=== PATIENT | female | born 1930 | race Caucasian/White ===

== ENCOUNTER 2017-02-02 12:09 | Inpatient (IN) | payer MEDICARE, BC ==
[2017-02-02 12:35] LABS: CHLORIDE,CL 102 mEq/L (98-106); SODIUM,NA 138 mEq/L (136-145)
[2017-02-02] MEDS ORDERED: OXYCODONE HCL PO PRN (13:46)
[2017-02-02] MEDS ORDERED: ACETAMINOPHEN PO PRN (13:46)
--- NOTE | 2017-02-02 13:53 | EDM.PDOC ---
ED HPI GENERAL MEDICAL PROBLEM - General Chief Complaint: General Stated Complaint: WEAK,VERTIGO Time Seen by Provider: 02/02/17 12:20 Source of Information: Reports: Patient, Other (friend) History Limitations: Reports: Other (hx of dementia) - History of Present Illness INITIAL COMMENTS - FREE TEXT/NARRATIVE: Lilly is an 86 yo female who is brought into the ER by [facility] with concerns of confusion, weakness and dizziness. A friend has been concerned of her well being and did a wellness check on her today. States she could tell she was a lot weaker. She admits over the last year Lilly has gradually been declining and unsure if she can continue to take care of herself. Hasn't been eating much either per friend. Besides the weakness, Lilly really denies any other symptoms or concerns. Her son lives in [place] currently but does speak to her on a daily basis. - Related Data Allergies Allergy/AdvReac Type Severity Reaction Status Date / Time Sulfa (Sulfonamide Allergy Cannot Verified 02/02/17 13:06 Antibiotics) Remember Home Meds: Home Meds Aspirin [Halfprin] 81 mg PO DAILY 05/28/14 [History] Fluticasone Propionate [Flonase] 2 spray NASBOTH DAILY 05/28/14 [History] Levothyroxine Sodium [Unithroid] 50 mcg PO DAILY 05/28/14 [History] Lisinopril/Hydrochlorothiazide [Lisinopril-Hctz 10-12.5 mg Tab] 1 tab PO DAILY 05/28/14 [History] Loratadine [Claritin] 10 mg PO DAILY 05/28/14 [History] Terazosin [Hytrin] 2 mg PO DAILY 05/28/14 [History] atorvaSTATin [Lipitor] 10 mg PO DAILY 05/28/14 [History] Denosumab [Prolia] 60 mg SUBCUT Q6M 10/03/16 [History] oxyCODONE HCl/Acetaminophen [Percocet 10-325 mg Tablet] 1 each PO Q6H PRN [History] Past Medical History HEENT History: Reports: Sinusitis Cardiovascular History: Reports: High Cholesterol, Hypertension Musculoskeletal History: Reports: Osteoporosis Psychiatric History: Reports: Dementia Hematologic History: Reports: B12 Deficiency Social & Family History - Tobacco Use Smoking Status *Q: Never Smoker Second Hand Smoke Exposure: No ED ROS GENERAL - Review of Systems Review Of Systems: See Below Constitutional: Reports: Weakness, Decreased Appetite, Weight Loss. Denies: Fever, Chills HEENT: Reports: No Symptoms Respiratory: Reports: No Symptoms. Denies: Shortness of Breath, Wheezing, Cough Cardiovascular: Reports: Lightheadedness. Denies: Chest Pain, Edema, Palpitations, Syncope Endocrine: Reports: No Symptoms GI/Abdominal: Reports: No Symptoms. Denies: Abdominal Pain, Constipation, Diarrhea, Melena, Nausea, Vomiting : Reports: No Symptoms Neurological: Reports: Confusion, Dizziness, Weakness ED EXAM, GENERAL - Physical Exam Exam: See Below Exam Limited By: Other (confused) General Appearance: Alert, No Apparent Distress Eye Exam: Bilateral Eye: EOMI, PERRL Ears: Normal External Exam, Normal Canal, Hearing Grossly Normal, Normal TMs Nose: Normal Inspection, Normal Mucosa, No Blood Throat/Mouth: Normal Inspection, Normal Gums, Normal Oropharynx, Normal Voice, No Airway Compromise Head: Atraumatic, Normocephalic Neck: Normal Inspection, Supple, Non-Tender Respiratory/Chest: No Respiratory Distress, Lungs Clear, Normal Breath Sounds, No Accessory Muscle Use Cardiovascular: Normal Peripheral Pulses, Regular Rate, Rhythm, No Edema GI/Abdominal: Normal Bowel Sounds, Soft, Non-Tender, No Organomegaly, No Distention, No Abnormal Bruit, No Mass Extremities: Normal Inspection, No Pedal Edema, Normal Capillary Refill Neurological: Alert, No Motor/Sensory Deficits, Confused Psychiatric: Normal Affect, Normal Mood Skin Exam: Warm, Dry, Intact, Normal Color, No Rash Course - Vital Signs Last Recorded V/S: Last Vital Signs Temp 97.0 F 02/02/17 16:41 Pulse 74 02/02/17 16:41 Resp 20 02/02/17 16:41 BP 118/68 02/02/17 16:41 Pulse Ox 90 L 02/02/17 16:38 - Orders/Labs/Meds Orders: Active Orders 24 hr Category Date Time Status Patient Status [ADT] Routine ADT 02/02/17 13:58 Active Cardiac Monitoring [RC] 0800,2000 Care 02/02/17 13:39 Active Intake and Output [RC] 0600,1800 Care 02/02/17 13:58 Active Oxygen Therapy [RC] .PRN Care 02/02/17 13:58 Active Pulse Oximetry [RC] .PRN Care 02/02/17 13:58 Active Up With Assistance [RC] ASDIRECTED Care 02/02/17 13:58 Active Vital Signs [RC] 0800,1200,1600,2000,0000,0400 Care 02/02/17 13:58 Active Regular Diet [DIET] Diet 02/02/17 Dinner Active Head wo Cont [CT] Stat Exams 02/02/17 12:10 Taken BASIC METABOLIC PANEL,BMP [CHEM] DAILY Lab 02/03/17 05:11 Ordered BASIC METABOLIC PANEL,BMP [CHEM] DAILY Lab 02/04/17 05:11 Ordered BASIC METABOLIC PANEL,BMP [CHEM] DAILY Lab 02/05/17 05:11 Ordered CBC WITH AUTO DIFF [HEME] DAILY Lab 02/03/17 05:11 Ordered CBC WITH AUTO DIFF [HEME] DAILY Lab 02/04/17 05:11 Ordered CBC WITH AUTO DIFF [HEME] DAILY Lab 02/05/17 05:11 Ordered OCCULT BLOOD SCREEN [OP] Stat Lab 02/02/17 13:58 Uncollected Acetaminophen [Tylenol] Med 02/02/17 13:58 Active 650 mg PO Q4H PRN Docusate Sodium [Colace] Med 02/02/17 13:58 Active 100 mg PO BID PRN Levothyroxine [Synthroid] Med 02/03/17 08:00 Active 50 mcg PO DAILY Sodium Chloride 0.9% [Normal Saline] 1,000 ml Med 02/02/17 13:58 Active IV ASDIRECTED oxyCODONE HCl/Acetaminophen Med 02/02/17 13:46 Active 1 each PO Q6H PRN Resuscitation Status Routine Resus Stat 02/02/17 13:40 Ordered Medication Orders Acetaminophen (Tylenol) 650 mg PO Q4H PRN PRN Reason: Pain (Mild 1-3)/fever Ceftriaxone Sodium (Rocephin) 1 gm IVPUSH Q24H [facility] Last Admin: 02/02/17 16:33 Dose: 1 gm Docusate Sodium (Colace) 100 mg PO BID PRN PRN Reason: Constipation Sodium Chloride (Normal Saline) 1,000 mls @ 50 mls/hr IV ASDIRECTED [facility] Last Admin: 02/02/17 14:20 Dose: 50 mls/hr Levothyroxine Sodium (Synthroid) 50 mcg PO DAILY [facility] Non-Formulary Medication (Oxycodone Hcl/Acetaminophen) 1 each PO Q6H PRN PRN Reason: Pain Pantoprazole Sodium (Protonix Iv) 40 mg IVPUSH Q24H [facility] Last Admin: 02/02/17 16:30 Dose: 40 mg Labs: Laboratory Tests 02/02/17 02/02/17 02/02/17 Range/Units 12:15 12:15 12:15 WBC 5.7 (5.0-10.0) 10^3/uL RBC 2.45 L (4.00-5.50) 10^6/uL Hgb 7.5 L* (12.0-16.0) g/dL Hct 23.3 L (37.0-47.0) % MCV 95.1 H (82.0-94.0) fL MCH 30.6 (27.0-32.0) pg MCHC 32.2 L (33.0-38.0) g/dL RDW Coeff of Ivan 13.2 (11.0-15.0) % Plt Count 221 (150-400) 10^3/uL Neut % (Auto) 73.0 (35-85) % Lymph % (Auto) 19.0 (10-55) % [place] % (Auto) 5.8 (0-16) % Eos % (Auto) 1.9 (0-5) % Baso % (Auto) 0.3 (0-3) % Neut # (Auto) 4.18 (1.80-7.00) 10^3/uL Lymph # (Auto) 1.09 (1.00-4.80) 10^3/uL [place] # (Auto) 0.33 (0.00-0.80) 10^3/uL Eos # (Auto) 0.11 (0.00-0.45) 10^3/uL Baso # (Auto) 0.02 10^3/uL Sodium 138 (136-145) mEq/L Potassium 3.2 L (3.5-5.0) mEq/L Chloride 102 (98-106) mEq/L Carbon Dioxide 22 (21-32) mmol/L BUN 68 H D (7-18) mg/dL Creatinine 1.6 H (0.6-1.0) mg/dL Est Cr Clr Drug Dosing TNP Estimated GFR (MDRD) 30 L (>=60) mL/min Glucose 124 H (75-99) mg/dL Calcium 8.7 (8.4-10.1) mg/dL Total Bilirubin 0.6 (0.0-1.0) mg/dL AST 16 (15-37) U/L ALT 14 (12-78) U/L Alkaline Phosphatase 49 (46-116) U/L Creatine Kinase 132 (21-215) U/L Troponin I < 0.017 (0.00-0.06) ng/mL C-Reactive Protein < 0.2 L (0.2-0.8) mg/dL Total Protein 6.8 (6.4-8.2) g/dL Albumin 3.7 (3.4-5.0) g/dL Blood Type O POSITIVE Gel Antibody Screen Negative Crossmatch See Detail Meds: Medications Generic Name Dose Route Start Last Admin Trade Name Freq PRN Reason Stop Dose Admin Acetaminophen 650 mg 02/02/17 13:58 Tylenol PO Q4H PRN Pain (Mild 1-3)/fever Ceftriaxone Sodium 1 gm 02/02/17 14:00 02/02/17 16:33 Rocephin IVPUSH 1 gm Q24H [facility] Administration Docusate Sodium 100 mg 02/02/17 13:58 Colace PO BID PRN Constipation Sodium Chloride 1,000 mls @ 50 mls/hr 02/02/17 13:58 02/02/17 14:20 Normal Saline IV 50 mls/hr ASDIRECTED [facility] Administration Levothyroxine Sodium 50 mcg 02/03/17 08:00 Synthroid PO DAILY [facility] Non-Formulary Medication 1 each 02/02/17 13:46 Oxycodone Hcl/Acetaminophen PO Q6H PRN Pain Pantoprazole Sodium 40 mg 02/02/17 15:00 02/02/17 16:30 Protonix Iv IVPUSH 40 mg Q24H [facility] Administration Discontinued Medications Generic Name Dose Route Start Last Admin Trade Name Freq PRN Reason Stop Dose Admin Furosemide 40 mg 02/02/17 13:58 02/02/17 16:35 Lasix IVPUSH 02/02/17 13:59 40 mg ONETIME ONE Administration Departure - Departure Time of Disposition: 12:50 Disposition: Admitted As Inpatient 64 Clinical Impression: UTI (urinary tract infection) Qualifiers: Indwelling urinary catheter type: unspecified Encounter type: initial encounter Anemia Qualifiers: Anemia type: unspecified type Qualified Code(s): D64.9 - Anemia, unspecified - Discharge Information - Problem List & Annotations (1) UTI (urinary tract infection) SNOMED Code(s): 52894667 Code(s): N39.0 - URINARY TRACT INFECTION, SITE NOT SPECIFIED Status: Acute Current Visit: Yes Qualifiers: Indwelling urinary catheter type: unspecified Encounter type: initial encounter (2) Anemia SNOMED Code(s): 532927607 Code(s): D64.9 - ANEMIA, UNSPECIFIED Status: Acute Current Visit: Yes Qualifiers: Anemia type: unspecified type Qualified Code(s): D64.9 - Anemia, unspecified - My Orders Last 24 Hours: My Active Orders 02/02/17 12:10 Head wo Cont [CT] Stat 02/02/17 13:39 Cardiac Monitoring [RC] 0800,2000 02/02/17 13:40 Resuscitation Status Routine 02/02/17 13:46 oxyCODONE HCl/Acetaminophen 1 each PO Q6H PRN 02/02/17 13:58 Patient Status [ADT] Routine Intake and Output [RC] 0600,1800 Oxygen Therapy [RC] .PRN Pulse Oximetry [RC] .PRN Up With Assistance [RC] ASDIRECTED Vital Signs [RC] 0800,1200,1600,2000,0000,0400 OCCULT BLOOD SCREEN [OP] Stat Acetaminophen [Tylenol] 650 mg PO Q4H PRN Docusate Sodium [Colace] 100 mg PO BID PRN Sodium Chloride 0.9% [Normal Saline] 1,000 ml IV ASDIRECTED 02/02/17 Dinner Regular Diet [DIET] 02/03/17 05:11 BASIC METABOLIC PANEL,BMP [CHEM] DAILY CBC WITH AUTO DIFF [HEME] DAILY 02/03/17 08:00 Levothyroxine [Synthroid] 50 mcg PO DAILY 02/04/17 05:11 BASIC METABOLIC PANEL,BMP [CHEM] DAILY CBC WITH AUTO DIFF [HEME] DAILY 02/05/17 05:11 BASIC METABOLIC PANEL,BMP [CHEM] DAILY CBC WITH AUTO DIFF [HEME] DAILY - Assessment/Plan Admission H&P: Please use this note as an admission H&P Last 24 Hours: My Active Orders 02/02/17 12:10 Head wo Cont [CT] Stat 02/02/17 13:39 Cardiac Monitoring [RC] 08,199902/02/17 13:40 Resuscitation Status Routine 02/02/17 13:46 oxyCODONE HCl/Acetaminophen 1 each PO Q6H PRN 02/02/17 13:58 Patient Status [ADT] Routine Intake and Output [RC] 0600,1800 Oxygen Therapy [RC] .PRN Pulse Oximetry [RC] .PRN Up With Assistance [RC] ASDIRECTED Vital Signs [RC] 0800,1200,1600,2000,0000,0400 OCCULT BLOOD SCREEN [OP] Stat Acetaminophen [Tylenol] 650 mg PO Q4H PRN Docusate Sodium [Colace] 100 mg PO BID PRN Sodium Chloride 0.9% [Normal Saline] 1,000 ml IV ASDIRECTED 02/02/17 Dinner Regular Diet [DIET] 02/03/17 05:11 BASIC METABOLIC PANEL,BMP [CHEM] DAILY CBC WITH AUTO DIFF [HEME] DAILY 02/03/17 08:00 Levothyroxine [Synthroid] 50 mcg PO DAILY 02/04/17 05:11 BASIC METABOLIC PANEL,BMP [CHEM] DAILY CBC WITH AUTO DIFF [HEME] DAILY 02/05/17 05:11 BASIC METABOLIC PANEL,BMP [CHEM] DAILY CBC WITH AUTO DIFF [HEME] DAILY Plan: Consulted with dr. Whitley in regards to Lilly's condition. Will admit under acute care which he was in agreement. Will type and cross and transfuse 2 units of pRBC's. Encourage social service consult for possible fpc placement with concerns of confusion. Antibiotic therapy started as well d/t UTI. Will keep on Telemetry and closely monitor.
[2017-02-02] MEDS ORDERED: Sodium Chloride 0.9% 1,000 ML IV SCH (13:58)
[2017-02-02] MEDS ORDERED: Docusate Sodium 100 MG Cap PO PRN (13:58)
[2017-02-02] MEDS ORDERED: Furosemide 40 MG/4 ML VIAL IVPUSH ONE (13:58)
[2017-02-02] MEDS ORDERED: Acetaminophen 325 MG Tab PO PRN (13:58)
[2017-02-02] MEDS ORDERED: cefTRIAXone 1 GM Vial IVPUSH SCH (14:00)
[2017-02-02] MEDS: Pantoprazole 40 MG Vial IVPUSH SCH (16:30)
[2017-02-03 07:35] LABS: CHLORIDE,CL 105 mEq/L (98-106); SODIUM,NA 142 mEq/L (136-145)
[2017-02-03] MEDS: Levothyroxine 50 MCG Tab PO SCH (07:50)
[2017-02-03] MEDS ORDERED: Potassium Chloride 40 MEQ in Premix Bag 1 BAG IV ONE (10:57)
[2017-02-03] MEDS ORDERED: Sodium Chloride 0.9% 250 ML IV SCH (12:00)
[2017-02-03] MEDS ORDERED: Sodium Chloride 0.9% 250 ML ONE (12:11)
--- NOTE | 2017-02-03 12:37 | PN ---
DATE: 02/03/2017 S: Ms. Rome is admitted by [facility] for weakness, possible UTI and overall decline. She was confused and dizzy apparently at home and a friend came and brought her to the emergency room. She had evidence of a possible bladder infection. She was showing some signs of weakness, was hypokalemic and ultimately admitted for care. She has been having a more difficult time as she is an 86-year-old living at home alone and does have some memory deficits. At the time of admission, her hemoglobin was 7.5 and she does admit and states now that maybe her stools have been darker. She is macrocytic and has a history of B12 deficiency. Her potassium was 3.2 on admit. HOSPITAL COURSE: The patient was admitted, started on IV fluids and given 2 units of blood. Her hemoglobin came up today to 10.6. Urine culture remains pending, but no obvious growth. We did get a Hemoccult back which was positive. O: GENERAL: This morning, she is pleasant, alert and cooperative. Appears in no distress. HEENT: Grossly benign. NECK: Supple. Veins are flat. LUNGS: Sounds are clear. ABDOMEN: Completely benign and nontender, maybe a little discomfort in the mid epigastric area. EXTREMITIES: No peripheral edema is seen. ASSESSMENT: 1. GASTROINTESTINAL BLEED. 2. HYPOKALEMIA. 3. DEMENTIA. P: We have her hemoglobin up to 10.5. She is on clear liquids. We will plan on an upper endoscopy early next week as long as she remains stable. She is on IV Protonix. We will replace her potassium and magnesium today appropriately and continue to monitor that. Her son is present here from [place]. We had a long discussion about her memory deficits, inability to remain at home on her own. He is aware and feels that patient might be appropriate certainly initially maybe to correction for some rehab and we will reassess in a month. I would like to get a cath study to see where she is at today. For now, she looks clinically stable. We will continue all other cares. MILAGROS/JENN /[id number]
[2017-02-03] MEDS: Pantoprazole 40 MG Vial IVPUSH SCH (15:52)
[2017-02-04] MEDS: Levothyroxine 50 MCG Tab PO SCH (07:59)
--- NOTE | 2017-02-04 13:44 | PCM.PN ---
- General Info Functional Status: Reports: pain controlled - Review of Systems General: Reports: No Symptoms HEENT: Reports: no symptoms Pulmonary: Reports: no symptoms Cardiovascular: Reports: No Symptoms Gastrointestinal: Reports: No symptoms Genitourinary: Reports: no symptoms Musculoskeletal: Reports: no symptoms Skin: Reports: no symptoms Neurological: Reports: Confusion Psychiatric: Reports: no symptoms - Patient Data Vitals - most recent: Last Vital Signs Temp 97.8 F 02/04/17 11:36 Pulse 61 02/04/17 11:36 Resp 16 02/04/17 11:36 BP 118/68 02/04/17 11:36 Pulse Ox 97 02/04/17 11:36 Weight - most recent: 123 lb 9.6 oz I&O - last 24 hours: Intake & Output 02/03/17 02/04/17 02/04/17 22:59 06:59 14:59 Intake Total 1110 200 540 Output Total 200 400 Balance 910 -200 540 Lab Results last 24 hrs: Laboratory Results - last 24 hr 02/04/17 02/04/17 Range/Units 05:11 05:11 WBC 5.0 (5.0-10.0) 10^3/uL RBC 3.44 L (4.00-5.50) 10^6/uL Hgb 10.7 L (12.0-16.0) g/dL Hct 32.4 L (37.0-47.0) % MCV 94.2 H (82.0-94.0) fL MCH 31.1 (27.0-32.0) pg MCHC 33.0 (33.0-38.0) g/dL RDW Coeff of Ivan 14.3 (11.0-15.0) % Plt Count 206 (150-400) 10^3/uL Neut % (Auto) 62.1 (35-85) % Lymph % (Auto) 24.3 (10-55) % [place] % (Auto) 7.6 (0-16) % Eos % (Auto) 5.8 H (0-5) % Baso % (Auto) 0.2 (0-3) % Neut # (Auto) 3.09 (1.80-7.00) 10^3/uL Lymph # (Auto) 1.21 (1.00-4.80) 10^3/uL [place] # (Auto) 0.38 (0.00-0.80) 10^3/uL Eos # (Auto) 0.29 (0.00-0.45) 10^3/uL Baso # (Auto) 0.01 10^3/uL Sodium 142 (136-145) mEq/L Potassium 3.1 L (3.5-5.0) mEq/L Chloride 106 (98-106) mEq/L Carbon Dioxide 27 (21-32) mmol/L BUN 30 H (7-18) mg/dL Creatinine 1.0 (0.6-1.0) mg/dL Est Cr Clr Drug Dosing 27.93 mL/min Estimated GFR (MDRD) 52 L (>=60) mL/min Glucose 104 H (75-99) mg/dL Calcium 8.3 L (8.4-10.1) mg/dL Aakash Results last 24 hrs: Microbiology 02/02/17 14:20 Urine Culture - Final Urine, Voided Med Orders - Current: Current Medications Acetaminophen (Tylenol) 650 mg PO Q4H PRN PRN Reason: Pain (Mild 1-3)/fever Docusate Sodium (Colace) 100 mg PO BID PRN PRN Reason: Constipation Sodium Chloride (Normal Saline) 250 mls @ 62.5 mls/hr IV ASDIRECTED [facility] Last Admin: 02/03/17 12:20 Dose: 62.5 mls/hr Levothyroxine Sodium (Synthroid) 50 mcg PO DAILY [facility] Last Admin: 02/04/17 07:59 Dose: 50 mcg Non-Formulary Medication (Oxycodone Hcl/Acetaminophen) 1 each PO Q6H PRN PRN Reason: Pain Pantoprazole Sodium (Protonix Iv) 40 mg IVPUSH Q24H [facility] Last Admin: 02/03/17 15:52 Dose: 40 mg Discontinued Medications Ceftriaxone Sodium (Rocephin) 1 gm IVPUSH Q24H [facility] Last Admin: 02/02/17 16:33 Dose: 1 gm Furosemide (Lasix) 40 mg IVPUSH ONETIME ONE Stop: 02/02/17 13:59 Last Admin: 02/02/17 16:35 Dose: 40 mg Sodium Chloride (Normal Saline) 1,000 mls @ 50 mls/hr IV ASDIRECTED [facility] Last Admin: 02/02/17 14:20 Dose: 50 mls/hr Potassium Chloride 40 meq/ (Premix) 100 mls @ 25 mls/hr IV ONETIME ONE Stop: 02/03/17 14:56 Last Admin: 02/03/17 12:17 Dose: 25 mls/hr Sodium Chloride (Normal Saline) Confirm Administered Dose 250 mls @ as directed .ROUTE .STK-MED ONE Stop: 02/03/17 12:12 Last Admin: 02/03/17 12:21 Dose: Not Given - Exam General: alert, cooperative, no acute distress. No: oriented Neck: supple Lungs: Clear to auscultation, Normal respiratory effort Cardiovascular: Regular Rate, Regular Rhythm Abdomen: bowel sounds present, soft, no tenderness, no distension Back Exam: Normal Inspection, Full Range of Motion Extremities: no edema, normal pulses, no tenderness/swelling, no clubbing, no cyanosis, no calf tenderness Peripheral Pulses: 2+: Radial (L), Radial (R), Posterior Tibial (L), Posterior Tibial (R), Dorsalis Pedis (L), Dorsalis Pedis (R) Skin: warm, dry, intact Neurological: no new focal deficit Psy/Mental Status: alert, normal affect, normal mood - Problem List Review Problem List Initiated/Reviewed/Updated: Yes - Plan Plan:: This patient is an 86 year old female that was admitted for confusion. Patient today remains confused. She is alert. She is oriented to self, but not place or time. The patient is being treated for hypokalemia, elevated BUN, and low Hgb. The patient is much improved with labs. Today her Hgb is 10.7, yesterday 10.6, on the 8th it was 7.5. Her potassium sanjay is 31. Her BUn today is 30, yesterday 52, on the 8th was 68. The patient does not appear to be in any acute distress. The patient denies hudson, dizziness, n, v, d, f, cough, congestion, drainage, cp, soa, urinary/bowel changes.
[2017-02-04] MEDS: Pantoprazole 40 MG Vial IVPUSH SCH (15:21)
[2017-02-05] MEDS: Levothyroxine 50 MCG Tab PO SCH ×2 (07:37→12:12)
--- NOTE | 2017-02-05 10:44 | PCM.PN ---
- General Info Date of Service: 02/05/17 Functional Status: Reports: pain controlled - Review of Systems General: Reports: No Symptoms HEENT: Reports: no symptoms Pulmonary: Reports: no symptoms Cardiovascular: Reports: No Symptoms Gastrointestinal: Reports: No symptoms Genitourinary: Reports: no symptoms Musculoskeletal: Reports: no symptoms Skin: Reports: no symptoms Neurological: Reports: Confusion Psychiatric: Reports: no symptoms - Patient Data Vitals - most recent: Last Vital Signs Temp 98.0 F 02/05/17 07:19 Pulse 72 02/05/17 07:19 Resp 17 02/05/17 07:19 BP 112/70 02/05/17 07:19 Pulse Ox 91 L 02/05/17 07:19 Weight - most recent: 123 lb 9.6 oz I&O - last 24 hours: Intake & Output 02/04/17 02/05/17 02/05/17 22:59 06:59 14:59 Intake Total 780 400 Output Total 700 325 Balance 80 -325 400 Lab Results last 24 hrs: Laboratory Results - last 24 hr 02/05/17 02/05/17 02/05/17 Range/Units 05:11 05:11 09:00 WBC 8.2 (5.0-10.0) 10^3/uL RBC 3.32 L (4.00-5.50) 10^6/uL Hgb 10.3 L (12.0-16.0) g/dL Hct 31.5 L (37.0-47.0) % MCV 94.9 H (82.0-94.0) fL MCH 31.0 (27.0-32.0) pg MCHC 32.7 L (33.0-38.0) g/dL RDW Coeff of Ivan 14.1 (11.0-15.0) % Plt Count 200 (150-400) 10^3/uL Neut % (Auto) 71.9 (35-85) % Lymph % (Auto) 15.7 (10-55) % [place] % (Auto) 7.1 (0-16) % Eos % (Auto) 5.1 H (0-5) % Baso % (Auto) 0.2 (0-3) % Neut # (Auto) 5.89 (1.80-7.00) 10^3/uL Lymph # (Auto) 1.29 (1.00-4.80) 10^3/uL [place] # (Auto) 0.58 (0.00-0.80) 10^3/uL Eos # (Auto) 0.42 (0.00-0.45) 10^3/uL Baso # (Auto) 0.02 10^3/uL Sodium 141 (136-145) mEq/L Potassium 3.1 L (3.5-5.0) mEq/L Chloride 106 (98-106) mEq/L Carbon Dioxide 25 (21-32) mmol/L BUN 22 H (7-18) mg/dL Creatinine 1.0 (0.6-1.0) mg/dL Est Cr Clr Drug Dosing 27.93 mL/min Estimated GFR (MDRD) 52 L (>=60) mL/min Glucose 97 (75-99) mg/dL Calcium 8.0 L (8.4-10.1) mg/dL Urine Color Yellow (YELLOW) Urine Appearance Clear (CLEAR) Urine pH 6.5 (4.5-8.0) Ur Specific Gage 1.012 (1.003-1.020) Urine Protein Negative (NEGATIVE) mg/dL Urine Glucose (UA) Negative (NEGATIVE) mg/dL Urine Ketones Negative (NEGATIVE) mg/dL Urine Occult Blood Negative (NEGATIVE) Urine Nitrite Negative (NEGATIVE) Urine Bilirubin Negative (NEGATIVE) Urine Urobilinogen 0.2 (0.2-1.0) EU/dL Ur Leukocyte Esterase Trace H (NEGATIVE) Urine RBC Not seen (0-5) /HPF Urine WBC 0-5 (0-5) /HPF Aakash Results last 24 hrs: Microbiology 02/02/17 14:20 Urine Culture - Final Urine, Voided Med Orders - Current: Current Medications Acetaminophen (Tylenol) 650 mg PO Q4H PRN PRN Reason: Pain (Mild 1-3)/fever Docusate Sodium (Colace) 100 mg PO BID PRN PRN Reason: Constipation Levothyroxine Sodium (Synthroid) 75 mcg PO DAILY [facility] Non-Formulary Medication (Oxycodone Hcl/Acetaminophen) 1 each PO Q6H PRN PRN Reason: Pain Pantoprazole Sodium (Protonix Iv) 40 mg IVPUSH Q24H [facility] Last Admin: 02/04/17 15:21 Dose: 40 mg Potassium Chloride (Klor-Con 10) 40 meq PO DAILY [facility] Discontinued Medications Ceftriaxone Sodium (Rocephin) 1 gm IVPUSH Q24H [facility] Last Admin: 02/02/17 16:33 Dose: 1 gm Furosemide (Lasix) 40 mg IVPUSH ONETIME ONE Stop: 02/02/17 13:59 Last Admin: 02/02/17 16:35 Dose: 40 mg Sodium Chloride (Normal Saline) 1,000 mls @ 50 mls/hr IV ASDIRECTED [facility] Last Admin: 02/02/17 14:20 Dose: 50 mls/hr Potassium Chloride 40 meq/ (Premix) 100 mls @ 25 mls/hr IV ONETIME ONE Stop: 02/03/17 14:56 Last Admin: 02/03/17 12:17 Dose: 25 mls/hr Sodium Chloride (Normal Saline) Confirm Administered Dose 250 mls @ as directed .ROUTE .[facility]-MED ONE Stop: 02/03/17 12:12 Last Admin: 02/03/17 12:21 Dose: Not Given Sodium Chloride (Normal Saline) 250 mls @ 62.5 mls/hr IV ASDIRECTED [facility] Last Admin: 02/03/17 12:20 Dose: 62.5 mls/hr Levothyroxine Sodium (Synthroid) 50 mcg PO DAILY [facility] Last Admin: 02/05/17 07:37 Dose: 50 mcg - Exam General: alert, cooperative, no acute distress Lungs: Clear to auscultation, Normal respiratory effort Cardiovascular: Regular Rate, Regular Rhythm Abdomen: soft, no tenderness, no distension Back Exam: Normal Inspection, Full Range of Motion Extremities: no edema, normal pulses, no tenderness/swelling, no clubbing, no cyanosis, no calf tenderness Peripheral Pulses: 2+: Radial (L), Radial (R), Posterior Tibial (L), Posterior Tibial (R) Skin: warm, dry, intact Neurological: no new focal deficit, normal speech, strength equal bilateral, sensation intact Psy/Mental Status: alert, normal affect, normal mood - Problem List Review Problem List Initiated/Reviewed/Updated: Yes - My Orders Last 24 Hours: My Active Orders 02/05/17 10:33 Levothyroxine [Synthroid] 75 mcg PO DAILY 02/06/17 08:00 Potassium Chloride [Klor-Con 10] 40 meq PO DAILY - Plan Plan:: This patient is an 86 year old female that was admitted for confusion. Patient today remains confused. She is alert. She is oriented to self, but not place or time. Although she does read the dry [employer] board in front of her, but reads it as 2006. The patient is being treated for hypokalemia, elevated BUN, and low Hgb with confusion. She lives at home alone. I do not feel she is able to live at home alone safely. The patient is much improved with labs. Today her Hgb is 10.3, on the 8th it was 7.5. Her potassium today is 3.1. Her BUn today is 22, yesterday 30, on the 8th was 68. The patient does not appear to be in any acute distress. Her TSH is 11.97, I will change her Synthroid. The patient denies hudson, dizziness, n, v, d, f, cough, congestion, drainage, cp, soa, urinary/bowel changes.
[2017-02-05] MEDS: Potassium Chloride 10 MEQ Tab.ER PO SCH (12:19)
[2017-02-05] MEDS: Pantoprazole 40 MG Vial IVPUSH SCH (15:18)
[2017-02-06] MEDS ORDERED: Potassium Chloride 10 MEQ Tab.ER PO SCH (08:00)
[2017-02-06] MEDS ORDERED: Tuberculin, PPD 5 Units/0.1 ML 1 ML MDV IDERM ONE (10:52)
[2017-02-06] MEDS ORDERED: Lactated Ringers 1,000 ML IV SCH (11:00)
[2017-02-06] MEDS ORDERED: Midazolam 1 MG/ML 2 ML SDV ONE (11:50)
[2017-02-06] MEDS ORDERED: fentaNYL 100 MCG/2 ML SDV ONE (11:50)
[2017-02-06] MEDS ORDERED: Lidocaine 4% Top Soln 5 ML LTA Syringe ONE (12:04)
[2017-02-06] MEDS ORDERED: Midazolam 1 MG/ML 2 ML SDV IV ONE (12:20)
[2017-02-06] MEDS: Levothyroxine 50 MCG Tab PO SCH (14:13)
[2017-02-06] MEDS: Potassium Chloride 10 MEQ Tab.ER PO SCH (14:13)
[2017-02-06] MEDS: Pantoprazole 40 MG Vial IVPUSH SCH (14:48)
--- NOTE | 2017-02-06 20:45 | PCM.PN ---
- General Info Date of Service: 02/06/17 Admission Dx/Problem (Free Text): Altered Mental Status Anemia Hypokalemia Functional Status: Reports: pain controlled - Review of Systems General: Reports: Weakness, Fatigue, Other (Patient overall, offers no complaints. Denies all other concerns) HEENT: Reports: no symptoms Pulmonary: Denies: shortness of breath, cough Cardiovascular: Denies: Chest Pain Gastrointestinal: Denies: Abdominal pain, Diarrhea, Nausea, Vomiting Genitourinary: Reports: no symptoms Musculoskeletal: Reports: no symptoms Skin: Reports: no symptoms Neurological: Reports: Confusion, Weakness - Patient Data Vitals - most recent: Last Vital Signs Temp 95.1 F L 02/06/17 19:45 Pulse 75 02/06/17 19:45 Resp 20 02/06/17 19:45 BP 132/78 02/06/17 19:45 Pulse Ox 96 02/06/17 19:45 Weight - most recent: 123 lb 9.6 oz Med Orders - Current: Current Medications Acetaminophen (Tylenol) 650 mg PO Q4H PRN PRN Reason: Pain (Mild 1-3)/fever Docusate Sodium (Colace) 100 mg PO BID PRN PRN Reason: Constipation Last Admin: 02/05/17 19:47 Dose: 100 mg Lactated Ringer's (Ringers, Lactated) 1,000 mls @ 125 mls/hr IV ASDIRECTED COUNTS INCLUDE 234 BEDS AT THE [facility] Levothyroxine Sodium (Synthroid) 75 mcg PO DAILY COUNTS INCLUDE 234 BEDS AT THE [facility] Last Admin: 02/06/17 14:13 Dose: 75 mcg Non-Formulary Medication (Oxycodone Hcl/Acetaminophen) 1 each PO Q6H PRN PRN Reason: Pain Pantoprazole Sodium (Protonix Iv) 40 mg IVPUSH Q24H COUNTS INCLUDE 234 BEDS AT THE [facility] Last Admin: 02/06/17 14:48 Dose: 40 mg Potassium Chloride (Klor-Con 10) 40 meq PO DAILY COUNTS INCLUDE 234 BEDS AT THE [facility] Last Admin: 02/06/17 14:13 Dose: 40 meq Discontinued Medications Ceftriaxone Sodium (Rocephin) 1 gm IVPUSH Q24H COUNTS INCLUDE 234 BEDS AT THE [facility] Last Admin: 02/02/17 16:33 Dose: 1 gm Fentanyl (Sublimaze) Confirm Administered Dose 100 mcg .ROUTE .STK-MED ONE Stop: 02/06/17 11:51 Last Admin: 02/06/17 13:14 Dose: Not Given Furosemide (Lasix) 40 mg IVPUSH ONETIME ONE Stop: 02/02/17 13:59 Last Admin: 02/02/17 16:35 Dose: 40 mg Sodium Chloride (Normal Saline) 1,000 mls @ 50 mls/hr IV ASDIRECTED COUNTS INCLUDE 234 BEDS AT THE [facility] Last Admin: 02/02/17 14:20 Dose: 50 mls/hr Potassium Chloride 40 meq/ (Premix) 100 mls @ 25 mls/hr IV ONETIME ONE Stop: 02/03/17 14:56 Last Admin: 02/03/17 12:17 Dose: 25 mls/hr Sodium Chloride (Normal Saline) Confirm Administered Dose 250 mls @ as directed .ROUTE .STK-MED ONE Stop: 02/03/17 12:12 Last Admin: 02/03/17 12:21 Dose: Not Given Sodium Chloride (Normal Saline) 250 mls @ 62.5 mls/hr IV ASDIRECTED COUNTS INCLUDE 234 BEDS AT THE [facility] Last Admin: 02/03/17 12:20 Dose: 62.5 mls/hr Levothyroxine Sodium (Synthroid) 50 mcg PO DAILY COUNTS INCLUDE 234 BEDS AT THE [facility] Last Admin: 02/05/17 12:12 Dose: 25 mcg Lidocaine HCl (Xylocaine 4% Top Soln) Confirm Administered Dose 5 ml .ROUTE .STK -MED ONE Stop: 02/06/17 12:05 Last Admin: 02/06/17 13:15 Dose: Not Given Midazolam HCl (Versed 1 Mg/Ml) Confirm Administered Dose 2 mg .ROUTE .STK-MED ONE Stop: 02/06/17 11:51 Last Admin: 02/06/17 13:15 Dose: Not Given Midazolam HCl (Versed 1 Mg/Ml) 1 mg IV .STK-MED ONE Stop: 02/06/17 12:21 Last Admin: 02/06/17 12:20 Dose: 1 mg Potassium Chloride (Klor-Con 10) 40 meq PO DAILY COUNTS INCLUDE 234 BEDS AT THE [facility] Tuberculin PPD (Aplisol) 5 unit IDERM ONETIME ONE Stop: 02/06/17 10:53 Last Admin: 02/06/17 14:12 Dose: 5 unit - Exam Quality Assessment: No: supplemental oxygen General: alert, oriented (to person only) HEENT: Mucous membr. moist/pink Neck: supple Lungs: Clear to auscultation, Normal respiratory effort Cardiovascular: Regular Rate, Regular Rhythm Abdomen: bowel sounds present, soft, no tenderness Skin: warm, dry Psy/Mental Status: normal affect - Problem List & Annotations (1) Confusion SNOMED Code(s): 360569013 Code(s): R41.0 - DISORIENTATION, UNSPECIFIED Status: Acute Priority: High Current Visit: Yes (2) Anemia SNOMED Code(s): 851732700 Code(s): D64.9 - ANEMIA, UNSPECIFIED Status: Acute Priority: High Current Visit: Yes Qualifiers: Anemia type: unspecified type Qualified Code(s): D64.9 - Anemia, unspecified (3) UTI (urinary tract infection) SNOMED Code(s): 91570029 Code(s): N39.0 - URINARY TRACT INFECTION, SITE NOT SPECIFIED Status: Acute Priority: High Current Visit: Yes Qualifiers: Indwelling urinary catheter type: unspecified Encounter type: initial encounter - Problem List Review Problem List Initiated/Reviewed/Updated: Yes - Assessment Assessment:: confusion UTI anemia - Plan Plan:: This patient is an 86 year old female that was admitted for confusion. Patient today remains confused. She is alert. She is oriented to self, but not place or time. Although she does read the [place] board in front of her, but reads it as 2006. The patient is being treated for hypokalemia, elevated BUN, and low Hgb with confusion. She lives at home alone. I do not feel she is able to live at home alone safely. The patient is much improved with labs. Today her Hgb is 10.3, on the 8th it was 7.5. Her potassium today is 3.1. Her BUn today is 22, yesterday 30, on the 8th was 68. The patient does not appear to be in any acute distress. Her TSH is 11.97, I will change her Synthroid. The patient denies hudson, dizziness, n, v, d, f, cough, congestion, drainage, cp, soa, urinary/bowel changes. 02-06-2107 Patient resting quietly. Is only oriented to person this am. Denies any concerns, no chest pain, abdominal pain or nausea. Is NPO this am for EGD at noon with Dr. Whitley due to anemia. Labs this am are stable. Hemoglobin stable at 10.3 as did respond well to blood transfusion given after admit. Will proceed with EGD. Continue Protonix. Transfer to [facility] tomorrow as has been having more difficulty living safely at home due to increasing confusion.
--- NOTE | 2017-02-07 07:24 | OR ---
DATE OF OPERATION: 02/06/2017 PREOPERATIVE DIAGNOSIS: IRON-DEFICIENCY ANEMIA. POSTOPERATIVE DIAGNOSIS: IRON-DEFICIENCY ANEMIA. SURGEON: Hugo Whitley MD PROCEDURE: EGD WITH BIOPSY X2. ANESTHESIA: Conscious sedation. COMPLICATIONS: None. SPECIMEN: 1. Antral ulcer biopsy x2. 2. CHARISSE. FINDINGS: 1. Full-length EGD. 2. Large antral ulcer. RECOMMENDATIONS: Ongoing medical therapy. INDICATIONS: The patient presented with anemia. She has some dementia, but did give a vague history of some melena over the last month. She has had some weight loss, came in with weakness, she was admitted to the hospital. We elected to transfuse her and ultimately proceed with EGD. NARRATIVE: The patient was prepped and draped, placed in the left lateral decubitus position. A lubricated Olympus gastroscope was inserted over a bit and easily advanced to the cricopharyngeus area and intubated in the esophagus. Esophageal lining was benign in its entire course. The Z-line was crisp and sharp around 38 cm. There was a small hiatal hernia present without any distal esophagitis, stricturing, ulceration, or Farmer's changes. The scope was advanced into the stomach and down to the antrum where patient has a large ulcer. We were able to get through the pylorus and into the second and third portion of duodenum. These were benign along with the bulb. The scope was brought back into the stomach. It was retroflexed, the upper fundus and cardia were benign. Upon straightening, the rest of the fundus was evaluated and unremarkable. The large ulcer in the midbody of the antrum had a large exudative base. We did two biopsies of the area along with a CHARISSE test. Air was then suctioned, scope was removed without complication. MILAGROS/JENN /[id number]
[2017-02-07] MEDS: Levothyroxine 50 MCG Tab PO SCH (08:21)
[2017-02-07] MEDS: Potassium Chloride 10 MEQ Tab.ER PO SCH (08:22)
[2017-02-07 08:32] VITALS: BP 129/73
--- NOTE | 2017-02-07 08:53 | PCM.DCSUM1 ---
Discharge Summary - Hospital Course Free Text/Narrative:: Patient presented to the ED due to confusion. Friend had noted that patient had not been herself, more confused, not caring well for herself. She was found to be anemic, had mild hypokalemia and a mild cystitis. Admitted for IV fluids due to dehydration and given 2 units of PRBC. Patient herself had little complaints. Initial hemoglobin was 7.5, potassium 3.2, creatinine 1.6. CRP was negative. - Discharge Data Discharge Date: 02/07/17 Discharge Disposition: DC/Tfer to [facility] 61 Condition: Fair - Discharge Diagnosis/Problem(s) (1) Confusion SNOMED Code(s): 736759753 ICD Code: R41.0 - DISORIENTATION, UNSPECIFIED Status: Acute Priority: High Current Visit: Yes (2) Anemia SNOMED Code(s): 060222833 ICD Code: D64.9 - ANEMIA, UNSPECIFIED Status: Acute Priority: High Current Visit: Yes Qualifiers: Anemia type: unspecified type Qualified Code(s): D64.9 - Anemia, unspecified (3) UTI (urinary tract infection) SNOMED Code(s): 70161471 ICD Code: N39.0 - URINARY TRACT INFECTION, SITE NOT SPECIFIED Status: Acute Priority: High Current Visit: Yes Qualifiers: Indwelling urinary catheter type: unspecified Encounter type: initial encounter - Patient Summary/Data Operative Procedure(s) Performed: EGD which did show antral ulcer x 2 which were biopsied. Complications: none Consults: Consultations 02/02/17 17:21 Consult to Part Time Flexible Clerk [CONS] Routine 02/03/17 10:59 Consult to Occupational Therapy [OT Evaluation and Treatment] [CONS] Routine Hospital Course: Patient has been relatively complaint-free through stay. Is pleasantly confused , oriented to person only. Had a positive stool sample for blood and patient had reported that she may have had a change in her stools over the prior month. Was given 2 units of PRBC during her stay and her hemoglobin has remained stable at 10.3 since then. She is tolerating her diet well. Denies any nausea or abdominal pain. No diarrhea. Urine culture essentially negative. Creatinine has improved to 1.0. Son very involved in her care. Has noted over the last year that she has declined mentally and feels she can no longer care for herself at home. She will transfer to [facility] today. Continue Protonix. Hold her baby ASA for 6 weeks. Have a panel 8 next week prior to Dr. Whitley's halfway rounds and see her at that time. - Patient Instructions Diet: Regular Diet as Tolerated Activity: As Tolerated - Discharge Plan Prescriptions/Med Rec: Pantoprazole Sodium [Protonix] 40 mg PO DAILY #30 tablet. Home Medications: Home Meds Fluticasone Propionate [Flonase] 2 spray NASBOTH DAILY 05/28/14 [History] Levothyroxine Sodium [Unithroid] 50 mcg PO DAILY 05/28/14 [History] Lisinopril/Hydrochlorothiazide [Lisinopril-Hctz 10-12.5 mg Tab] 1 tab PO DAILY 05/28/14 [History] Loratadine [Claritin] 10 mg PO DAILY 05/28/14 [History] Terazosin [Hytrin] 2 mg PO DAILY 05/28/14 [History] atorvaSTATin [Lipitor] 10 mg PO DAILY 05/28/14 [History] Denosumab [Prolia] 60 mg SUBCUT Q6M 10/03/16 [History] oxyCODONE HCl/Acetaminophen [Percocet 10-325 MG] 1 each PO Q6H PRN 02/02/17 [ History] Pantoprazole Sodium [Protonix] 40 mg PO DAILY #30 tablet. 02/07/17 [Rx] Forms: ED Department Discharge - Discharge Summary/Plan Comment DC Time >30 min.: Yes Discharge Summary/Plan Comment: Discharge to [facility]. Continue usual meds and Protonix. Hold ASA. Repeat panel 8 next week prior to Dr. Whitley's rounds. - General Info Date of Service: 02/07/17 Admission Dx/Problem (Free Text: Altered Mental Status Anemia Hypokalemia Functional Status: Reports: pain controlled, tolerating diet, ambulating - Review of Systems General: Reports: Weakness, Fatigue. Denies: Fever HEENT: Reports: no symptoms Pulmonary: Denies: shortness of breath, cough, wheezing Cardiovascular: Denies: Chest Pain, Lightheadedness Gastrointestinal: Reports: Melena. Denies: Abdominal pain, Diarrhea, Nausea, Vomiting Genitourinary: Reports: no symptoms Musculoskeletal: Reports: no symptoms Skin: Reports: no symptoms Neurological: Reports: No Symptoms - Patient Data Vitals - Most Recent: Last Vital Signs Temp 98.3 F 02/07/17 08:00 Pulse 72 02/07/17 08:00 Resp 16 02/07/17 08:00 BP 129/73 02/07/17 08:00 Pulse Ox 93 L 02/07/17 08:00 Weight - Most Recent: 123 lb 9.6 oz Med Orders - Current: Current Medications Acetaminophen (Tylenol) 650 mg PO Q4H PRN PRN Reason: Pain (Mild 1-3)/fever Docusate Sodium (Colace) 100 mg PO BID PRN PRN Reason: Constipation Last Admin: 02/05/17 19:47 Dose: 100 mg Lactated Ringer's (Ringers, Lactated) 1,000 mls @ 125 mls/hr IV ASDIRECTED [facility] Levothyroxine Sodium (Synthroid) 75 mcg PO DAILY [facility] Last Admin: 02/07/17 08:21 Dose: 75 mcg Non-Formulary Medication (Oxycodone Hcl/Acetaminophen) 1 each PO Q6H PRN PRN Reason: Pain Pantoprazole Sodium (Protonix Iv) 40 mg IVPUSH Q24H [facility] Last Admin: 02/06/17 14:48 Dose: 40 mg Potassium Chloride (Klor-Con 10) 40 meq PO DAILY [facility] Last Admin: 02/07/17 08:22 Dose: 40 meq Discontinued Medications Ceftriaxone Sodium (Rocephin) 1 gm IVPUSH Q24H [facility] Last Admin: 02/02/17 16:33 Dose: 1 gm Fentanyl (Sublimaze) Confirm Administered Dose 100 mcg .ROUTE .STK-MED ONE Stop: 02/06/17 11:51 Last Admin: 02/06/17 13:14 Dose: Not Given Furosemide (Lasix) 40 mg IVPUSH ONETIME ONE Stop: 02/02/17 13:59 Last Admin: 02/02/17 16:35 Dose: 40 mg Sodium Chloride (Normal Saline) 1,000 mls @ 50 mls/hr IV ASDIRECTED [facility] Last Admin: 02/02/17 14:20 Dose: 50 mls/hr Potassium Chloride 40 meq/ (Premix) 100 mls @ 25 mls/hr IV ONETIME ONE Stop: 02/03/17 14:56 Last Admin: 02/03/17 12:17 Dose: 25 mls/hr Sodium Chloride (Normal Saline) Confirm Administered Dose 250 mls @ as directed .ROUTE .STK-MED ONE Stop: 02/03/17 12:12 Last Admin: 02/03/17 12:21 Dose: Not Given Sodium Chloride (Normal Saline) 250 mls @ 62.5 mls/hr IV ASDIRECTED [facility] Last Admin: 02/03/17 12:20 Dose: 62.5 mls/hr Levothyroxine Sodium (Synthroid) 50 mcg PO DAILY [facility] Last Admin: 02/05/17 12:12 Dose: 25 mcg Lidocaine HCl (Xylocaine 4% Top Soln) Confirm Administered Dose 5 ml .ROUTE .STK -MED ONE Stop: 02/06/17 12:05 Last Admin: 02/06/17 13:15 Dose: Not Given Midazolam HCl (Versed 1 Mg/Ml) Confirm Administered Dose 2 mg .ROUTE .STK-MED ONE Stop: 02/06/17 11:51 Last Admin: 02/06/17 13:15 Dose: Not Given Midazolam HCl (Versed 1 Mg/Ml) 1 mg IV .STK-MED ONE Stop: 02/06/17 12:21 Last Admin: 02/06/17 12:20 Dose: 1 mg Potassium Chloride (Klor-Con 10) 40 meq PO DAILY [facility] Tuberculin PPD (Aplisol) 5 unit IDERM ONETIME ONE Stop: 02/06/17 10:53 Last Admin: 02/06/17 14:12 Dose: 5 unit - Exam General: Reports: alert, oriented (to person only) HEENT: Reports: Mucous membr. moist/pink Neck: Reports: supple Lungs: Reports: Clear to auscultation, Normal respiratory effort Cardiovascular: Reports: Regular Rate, Regular Rhythm Abdomen: Reports: bowel sounds present, soft, no tenderness Neurological: Reports: no new focal deficit *Q Meaningful Use (DIS) - VTE *Q VTE Criteria *Q: - Stroke *Q Stroke Criteria *Q: - AMI *Q AMI Criteria *Q:
== END 2017-02-07 09:30 | DRG 812 ==
LOC: CC.ED 12:09 → UNDOADMIN 13:53 → CC.MS 13:53
PROVIDERS: ADMIT Physician Assistant Medical; ATTEND Family Medicine
PROC: 30253N1 (ICD-10-PCS; 2017-02-02)
PROC: 0DB68ZX Excision of Stomach, Via Natural or Artificial Opening Endoscopic, Diagnostic (ICD-10-PCS; principal; 2017-02-06)
DX: D50.9 Iron deficiency anemia, unspecified (principal); T83.511A Infection and inflammatory reaction due to indwelling urethral catheter, initial encounter; D64.9 Anemia, unspecified; N39.0 Urinary tract infection, site not specified; K92.2 Gastrointestinal hemorrhage, unspecified; R41.0 Disorientation, unspecified; E87.6 Hypokalemia; E86.0 Dehydration; E78.00 Pure hypercholesterolemia, unspecified; I10 Essential (primary) hypertension; M19.90 Unspecified osteoarthritis, unspecified site; F03.90 Unspecified dementia, unspecified severity, without behavioral disturbance, psychotic disturbance, mood disturbance, and anxiety; R42 Dizziness and giddiness
CPT/HCPCS: 36415; 36430; 70450; 80048; 80053; 81001; 82270; 82550; 82607; 83735; 84439; 84443; 84484; 85025; 86140; 86580; 86850; 86900; 86901; 86920; 86922; 87081; 87086; 88305; 93005; 93010; 94760; 97530-GP; 99285; A9270-GY; C9113; J0696; J1940; J2250; J3480; J7030; J7050; P9016

== ENCOUNTER 2017-07-19 09:05 | Emergency (ER) | payer MEDICARE, BC ==
[2017-07-19] MEDS: cloNIDine 0.1 MG Tab ONE ×2 (09:18→09:39)
[2017-07-19] MEDS ORDERED: Oxymetazoline 0.05% Nasal Spray 15 ML Bottle NAS ONE (09:25)
[2017-07-19 09:59] VITALS: BP 144/86
--- NOTE | 2017-07-19 10:45 | EDM.PDOC ---
ED HPI GENERAL MEDICAL PROBLEM - General Chief Complaint: ENT Problem Stated Complaint: nose bleed Time Seen by Provider: 07/19/17 09:15 Source of Information: Reports: Patient, [facility] Records History Limitations: Reports: Other (pleasantly confused) - History of Present Illness INITIAL COMMENTS - FREE TEXT/NARRATIVE: Patient presents from [facility] with a nose bleed that started around 7 o'clock this am. She is unsure of the events preceding this. Staff relates that they did try to plug the nose with tissues but were unable to get it to stop. Did note that enroute to here it had slowed significantly. Patient's blood pressure at the group home was 195/101. Did have a change in her meds recently. Stopped zestoretic and started Lisinopril and Lasix. Per the BILLING REP, they did monitor her blood pressures three times a day and it was good. Patient is on Flonase, takes an aspirin daily Onset: Today, Sudden Duration: Hour(s): Location: Reports: Other (nose) Associated Symptoms: Reports: Confusion. Denies: Fever/Chills, Loss of Appetite , Nausea/Vomiting, Shortness of Breath Treatments REAL ESTATE ADMINISTRATOR: Reports: Other (see below) Other Treatments REAL ESTATE ADMINISTRATOR: nasal packing - Related Data Allergies Allergy/AdvReac Type Severity Reaction Status Date / Time Sulfa (Sulfonamide Allergy Cannot Verified 07/19/17 09:10 Antibiotics) Remember Home Meds: Home Meds Fluticasone Propionate [Flonase] 2 spray NASBOTH DAILY 05/28/14 [History] Levothyroxine Sodium [Unithroid] 50 mcg PO DAILY 05/28/14 [History] Loratadine [Claritin] 10 mg PO DAILY 05/28/14 [History] atorvaSTATin [Lipitor] 10 mg PO BEDTIME 05/28/14 [History] Aspirin [Adult Low Dose Aspirin EC] 81 mg PO DAILY 07/19/17 [History] Cyanocobalamin (Vitamin B-12) [Cyanocobalamin Injection] 1 ml IM Q30D 07/19/17 [ History] Furosemide [Lasix] 20 mg PO DAILY 07/19/17 [History] Lisinopril 10 mg PO DAILY 07/19/17 [History] Pantoprazole Sodium [Protonix] 40 mg PO Q2D 07/19/17 [History] Sennosides/Docusate Sodium [Senna-Docusate Sodium Tablet] 2 tab PO DAILY [History] Past Medical History HEENT History: Reports: Sinusitis Cardiovascular History: Reports: High Cholesterol, Hypertension Musculoskeletal History: Reports: Osteoporosis Psychiatric History: Reports: Dementia Hematologic History: Reports: B12 Deficiency Social & Family History - Tobacco Use Smoking Status *Q: Never Smoker Second Hand Smoke Exposure: No - Recreational Drug Use Recreational Drug Use: No ED ROS ENT - Review of Systems Review Of Systems: See Below Constitutional: Denies: Fever, Chills HEENT: Reports: Nosebleed. Denies: Ear Pain, Throat Pain Respiratory: Denies: Shortness of Breath, Cough Cardiovascular: Denies: Chest Pain GI/Abdominal: Denies: Nausea, Vomiting Neurological: Reports: Confusion Psychiatric: Denies: Agitation, Anxiety ED EXAM, ENT - Physical Exam Exam: See Below Exam Limited By: No Limitations General Appearance: Alert, WD/WN, No Apparent Distress Ears: Normal External Exam, Normal TMs Nose: Injected Turbinates, Other (patient has area of irritation to the septum, no active bleeding at this time.). No: Active Bleeding Mouth/Throat: Normal Inspection, Normal Teeth Head: Normocephalic Neck: Normal Inspection, Supple, Non-Tender Respiratory/Chest: No Respiratory Distress, Lungs Clear, Normal Breath Sounds Course - Vital Signs Last Recorded V/S: Last Vital Signs Temp 97.6 F 07/19/17 09:59 Pulse 55 L 07/19/17 09:59 Resp 19 07/19/17 09:59 BP 144/86 H 07/19/17 09:59 Pulse Ox 98 07/19/17 09:59 - Orders/Labs/Meds Orders: Active Orders 24 hr Category Date Time Status cloNIDine [Catapres] Med 07/20/17 09:18 Once 0.1 mg PO ONETIME ONE Medication Orders Clonidine HCl (Catapres) 0.1 mg PO ONETIME ONE Stop: 07/20/17 09:19 Last Admin: 07/19/17 09:18 Dose: 0.1 mg Meds: Medications Generic Name Dose Route Start Last Admin Trade Name Freq PRN Reason Stop Dose Admin Clonidine HCl 0.1 mg 07/20/17 09:18 07/19/17 09:18 Catapres PO 07/20/17 09:19 0.1 mg ONETIME ONE Administration Discontinued Medications Generic Name Dose Route Start Last Admin Trade Name Vazquez PRN Reason Stop Dose Admin Clonidine HCl Confirm 07/19/17 09:09 07/19/17 09:39 Catapres Administered 07/19/17 09:10 Not Given Dose 0.1 mg .ROUTE .STK-MED ONE Oxymetazoline HCl 1 ml 07/19/17 09:25 07/19/17 09:25 Afrin Original 0.05% Nasal Bradford VICTOR HUGO 07/19/17 09:26 1 ml ONETIME ONE Administration - Re-Assessments/Exams Free Text/Narrative Re-Assessment/Exam: 07/19/17 No active bleeding on arrival. Blood pressure high today. Afrin nasal spray inserted. Clonidine given. 1045- No further bleeding has occurred. Blood pressure much improved. Will discharge back to [facility]. Departure - Departure Time of Disposition: 10:52 Disposition: DC/Tfer to [facility] 61 Clinical Impression: Epistaxis - Discharge Information Referrals: Hugo Whitley MD [Primary Care Provider] - Additional Instructions: 1. Afrin nasal spray~ 2 sprays to left nare TID for 2 days 2. Stop Flonase 3. After Afrin completed, use saline gel to nare BID 4. Humidifier PRN 5. Norvasc 5 mg every HS, start today - My Orders Last 24 Hours: My Active Orders 07/20/17 09:18 cloNIDine [Catapres] 0.1 mg PO ONETIME ONE - Assessment/Plan Last 24 Hours: My Active Orders 07/20/17 09:18 cloNIDine [Catapres] 0.1 mg PO ONETIME ONE
[2017-07-20] MEDS ORDERED: cloNIDine 0.1 MG Tab PO ONE (09:18)
== END 2017-07-19 11:00 | disposition home or self-care (01) ==
LOC: CC.ED 09:05
DX: R04.0 Epistaxis (principal); I10 Essential (primary) hypertension; E78.00 Pure hypercholesterolemia, unspecified; Z79.82 Long term (current) use of aspirin; Z79.899 Other long term (current) drug therapy; Z88.2 Allergy status to sulfonamides
CPT/HCPCS: 99283; A9270